=== PATIENT | female | born 1995 | race African-American/Black ===

== ENCOUNTER 2017-04-17 13:04 | Emergency (ER) | payer MEDICAID, OTHER ==
[~2017-04-17] VITALS: Ht 177.8 cm; Wt 55.0 kg
[~2017-04-17 13:04] MED LIST: DICL50 PO
[2017-04-17 13:07] VITALS: BP 115/76; PULSE 72; RESP 20; TEMP 99.1; O2SAT 99
--- NOTE | 2017-04-17 13:51 | PD ---
Physical Exam Date Seen by Provider: Apr 17, 2017 Time Seen by Provider: 13:48 Narrative 21 y/o female with nausea and vomiting as well as intermittent abd pain. No period for 3 months. Pain worse with food or fluid intake. No fever or diarhhea. Labs ordered. Vital Signs reviewed. Patient is Stable and awaiting Bed Placement. Data Data Last Documented VS Vital Signs Date Time Temp Pulse Resp B/P (MAP) Pulse Ox O2 Delivery O2 Flow Rate FiO2 04/17/17 13:07 99.1 72 20 115/76 (89) 99 Room Air [facility] Medical Record Reviewed: Yes Supervised Visit with JUAN: Yes Condition: Stable En De Jesus Apr 17, 2017 13:51
[2017-04-17 14:34] LABS: BLOOD, URINE NEG (NEG); COMMENT (UR) CULT NOT INDICATED; CULTURE IF INDICATED CULT NOT INDICATED; GLUCOSE,URINE NEG (NEG); KETONE, URINE NEG (NEG); MUCUS URINE FEW /lpf (OCC); NITRITE,URINE NEG (NEG); PH, URINE 6.5 (5.0-8.5); SQUAMOUS EPITHELIAL CELL URINE 8 /hpf (0-5); URINE COLOR YELLOW (YELLW/STRAW)
== END 2017-04-17 16:53 | disposition left against medical advice (07) ==
LOC: NED 13:04
DX: R11.2 Nausea with vomiting, unspecified (principal); Z53.21 Procedure and treatment not carried out due to patient leaving prior to being seen by health care provider
CPT/HCPCS: 81001; 84703; 99283